=== PATIENT | female | born 1980 | race Hispanic/Latino ===

== ENCOUNTER 2018-09-06 08:06 | Inpatient (IN) | payer OTHER ==
[2018-09-06] MEDS ORDERED: BRETHINE SUB-Q PRN (13:22)
[2018-09-06] MEDS ORDERED: MINERAL OIL PO PRN (13:22)
[2018-09-06] MEDS ORDERED: SUBLIMAZE IV PRN (13:22)
[2018-09-06] MEDS ORDERED: ZOFRAN IV PRN (13:22)
[2018-09-06] MEDS ORDERED: XYLOCAINE 2% INFILTRATI ONE (13:22)
--- NOTE | 2018-09-06 13:36 | History and Physical Report ---
History of Present Illness Date of examination: 09/06/18 Chief complaint: Labor contractions started @ 0445 this morning History of present illness: EDC Confirmation: 09/04/2018 Past History : 3 Term Births: 2 Premature Births: 0 Living Children: 2 Para: 2 Mult. Births: 0 Prev : 0 Aborta: 0 Elect. Ab: 0 Spont. Ab: 0 Ectopics: 0 # 1 Delivery date: 2013 Weeks Gestation: 40 labor: no Delivery type: Sex: Female weight: 8#6 Name: Nadia Comments: ? CF carrier? # 2 Delivery date: 08/2017 Weeks Gestation: 40 labor: no Delivery type: Infant Sex: Male weight: 9#12 Comments: no shoulder dystocia Past Medical History: Negative Past Medical History Past Surgical History: negative Past Medical History Anesthesia Complications: negative Anemia: negative Autoimmune Disorder: negative Bleeding Disorder: negative Blood Transfusions: negative Breast Disease: negative Diabetes: negative Heart Disease: negative Hypertension: negative Hepatitis/Liver Disease: negative Kidney Disease/UTI: negative Neurologic/Epilepsy/Migraines: negative Phlebitis/Varicosities: negative Psychiatric: negative Pulmonary Disease/Asthma: negative Thyroid Disease: negative Hospitalizations: negative Surgery (Non-case manager specialist): negative Abnormal PAP: negative 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 of genital herpes: no Partner hx. of genital herpes: no Rash, Viral, or Febrile illness since last LMP? no Varicella/Chicken Pox Status: Previous Disease TB Risk: no Genetic History ADVANCED MATERNAL AGE Congenital Heart Defect: Mom: no Dad: no Germain Disease: Mom: no Dad: no Thalassemia Mom: no Dad: no Neural Tube Defect Mom: no Dad: no Down's Syndrome Mom: no Dad: no Beka-Sachs Mom: no Dad: no Sickle Cell Disease/Trait Mom: no Dad: no Hemophilia Mom: no Dad: no Muscular Dystrophy Mom: no Dad: no Cystic Fibrosis Mom: no Dad: no [place] Chorea Mom: no Dad: no Mental Retardation Mom: no Dad: no Fragile X Mom: no Dad: no Other Genetic/Chromosomal Disorder Mom: no Dad: no Child w/other defect Mom: no Dad: no Other: Daughter's screening + CF - no disease, mother not sure if she has been testing Enviromental Exposures Xray Exposure: no Medication, drug, or alcohol use since LMP: no Chemical/Other Exposure: no Exposure to Cat Liter: no Hx of Parvovirus (Fifth Disease): no Occupational Exposure to Children: none Past History Past Medical History: other (see HPI) Past Surgical History: other (see HPI) 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 (HPI) Family/Genetic History: other (see HPI) - Obstetrical History Expected Date of Delivery: 09/04/18 Actual Gestation: 40 Week(s) 2 Day(s) : 3 Para: 2 Hx # Term Pregnancies: 2 Number of Pregnancies: 0 Spontaneous Abortions: 0 Induced : 0 Number of Living Children: 2 Medications and Allergies Allergies Allergy/AdvReac Type Severity Reaction Status Date / Time Penicillins Allergy Anaphylaxis Verified 09/06/18 08:15 Active Meds: Active Medications Ephedrine Sulfate (Ephedrine Sulfate) 10 mg IV Q2M PRN PRN Reason: Hypotension Fentanyl (Sublimaze) 100 mcg IV Q2H PRN PRN Reason: Labor Pain Lactated Ringer's (Lactated Ringers) 1,000 mls @ 125 mls/hr IV DIRECT USHA Review of Systems All systems: negative - Vital Signs Vital signs: Vital Signs Pulse BP 73 125/70 09/06/18 08:16 09/06/18 08:16 Temp Pulse Resp BP Pulse Ox 73 125/70 09/06/18 08:16 09/06/18 08:16 - Physical Exam Breasts: Positive: normal Cardiovascular: Regular rate Lungs: Positive: Clear to auscultation, Normal air movement Abdomen: Positive: normal appearance, soft Genitourinary (Female): Positive: normal external genitalia, normal perenium Vulva: both: normal Vagina: Positive: normal moisture Uterus: Positive: normal size, normal contour Anus/Rectum: Positive: normal perianal skin Extremities: Positive: normal Deep Tendon Reflex Grade: Normal +2 - Obstetrical FHR: category 1 Uterine Contraction Monitor Mode: External Cervical Dilatation: 7 (IBOW) Cervical Effacement Percentage: 90 station: -1 Uterine Contraction Frequency (min): 3-5 Uterine Contraction Duration: 60 Uterine Contraction Pattern: Regular Uterine Tone Measurement Phase: Contraction Uterine Contraction Intensity: Strong/Firm Results All other labs normal. Assessment and Plan 38y/o admitted for active labor @ 40+2 weeks. GBS NEG. efw by u/s 08/20 8#10oz. Pt's last baby 9#12 w/o shoulder dystocia or laceration. Dr. Carrillo aware. Admission orders in EMR. Anticipate . Pt plans on natural without intervention if possible. - Patient Problems (1) 40 weeks gestation of Current Visit: Yes Status: Acute (2) Active labor at term Current Visit: Yes Status: Acute (3) BMI 40.0-44.9, adult Current Visit: Yes Status: Acute (4) Hx of macrosomia in infant in prior , currently Current Visit: Yes Status: Acute
[2018-09-06] MEDS ORDERED: LACTATED RINGERS 1,000 ML IV SCH (14:00)
[2018-09-06] MEDS ORDERED: PITOCin/NS 20 UNIT/1000ML DRIP 20 UNITS/1,000 ML BAG IV SCH ×2 (14:00→18:14)
[2018-09-06 14:21] LABS: Mean Corpuscular HGB Conc 36 % (30-34); Mean Corpuscular Volume 80 fl (79-97); Platelet Count 303 K/mm3 (140-440); Red Blood Count 4.53 M/mm3 (3.65-5.03); Red Cell Distribution Width 16.4 % (13.2-15.2)
[2018-09-06 14:27] LABS: Hematocrit 36.3 % (30.3-42.9); Hemoglobin 13.1 gm/dl (10.1-14.3)
--- NOTE | 2018-09-06 16:39 | Procedure Note ---
OB Delivery Note - Delivery Date of Delivery: 09/06/18 ( female) Rn Document Improvement Specialist: REJI DUDLEY Estimated blood loss: 200cc - Vaginal Delivery presentation: vertex Delivery position: OA (NONI) Intrapartum events: none Delivery induction: none Delivery augmentation: rupture of membranes Delivery monitor: external uterine, internal FHT Route of delivery: Delivery placenta: spontaneous Delivery cord: 3 umbilical vessels Episiotomy: none Delivery laceration: none Anesthesia: none Delivery comments: Female del over intact perineum, NONI. + terminal mec, fluid clear prior to delivery. no shoulder dystocia. Infant placed skin to skin on mother's abdomen. 3 vessel cord clamped and cut. Cord blood collected. Placenta del intact and complete. no laceration to repair. Pit to IVF. EBL 200. Apgars 8/9, wt 9#13oz. Mother and remain LDR stable. - Infant A at 1 minute: 8 at 5 minutes: 9 Infant Gender: Female (9#13)
[2018-09-06] MEDS ORDERED: TYLENOL PO PRN (18:14)
[2018-09-06] MEDS ORDERED: BENADRYL PO PRN (18:14)
[2018-09-06] MEDS ORDERED: DERMOPLAST TP PRN (18:14)
[2018-09-06] MEDS ORDERED: TUCKS PAD TP PRN (18:14)
[2018-09-06] MEDS ORDERED: SODIUM CHLORIDE FLUSH SYRINGE 10 ML IV NR (18:14)
[2018-09-06] MEDS ORDERED: LANSINOH TP PRN (18:14)
[2018-09-06] MEDS ORDERED: MILK OF MAGNESIA PO PRN (18:14)
[2018-09-06] MEDS ORDERED: PHENERGAN PO PRN (18:14)
[2018-09-06] MEDS ORDERED: DULCOLAX PR PRN (18:14)
[2018-09-06] MEDS: IBUPROFEN PO SCH ×2 (18:29→23:50)
[2018-09-07] MEDS: IBUPROFEN PO SCH ×3 (05:47→20:17)
[2018-09-07 06:23] LABS: Hemoglobin 11.4 gm/dl (10.1-14.3)
--- NOTE | 2018-09-07 08:09 | Discharge Summary ---
Providers - Providers Date of Admission: 09/06/18 13:58 Date of discharge: 09/07/18 (pt desires discharge today) Attending physician: DALY PEDRAZA Primary care physician: DALY PEDRAZA Hospitalization Reason for admission: labor Condition: Good Pertinent studies: post delivery H&H Procedures: Hospital course: uncomplicated and course Disposition: -01 TO HOME OR SELFCARE Core Measure Documentation - Palliative Care Palliative Care/ Comfort Measures: Not Applicable - Core Measures Any of the following diagnoses?: none Exam - Constitutional Vitals: Temp Pulse Resp BP Pulse Ox 98.1 F 76 18 121/65 97 09/07/18 05:02 09/07/18 05:02 09/07/18 05:02 09/07/18 05:02 09/07/18 05:02 General appearance: Present: no acute distress, well-nourished - EENT Eyes: Present: PERRL ENT: hearing intact, clear oral mucosa - Neck Neck: Present: supple, normal ROM - Respiratory Respiratory effort: normal Respiratory: bilateral: CTA - Cardiovascular Rhythm: regular Heart Sounds: Present: S1 & S2. Absent: rub, click - Extremities Extremities: pulses symmetrical, No edema Peripheral Pulses: within normal limits - Abdominal General gastrointestinal: Present: soft, non-tender, non-distended, normal bowel sounds Female genitourinary: Present: normal - Integumentary Integumentary: Present: clear, warm, dry - Musculoskeletal Musculoskeletal: gait normal, strength equal bilaterally - Psychiatric Psychiatric: appropriate mood/affect, intact judgment & insight - Neurologic Neurologic: CNII-XII intact, moves all extremities - Additional findings Additional findings: Fundus firm, ML, U/1. Vaginal bleeding is small. Patient reports pain is well controlled with ibuprofen. VSSAF. Breast feeding is going well, no complaints, she reports infant is doing well. Patient desires discharge today. May d/c home after 24 hrs post delivery, assuming she remains stable condition. D/c may be rolled over to tomorrow if is required to stay d/t bilirubin levels. Pt will f/u in office in 4 weeks. Plan Activity: no restrictions Diet: regular Follow up with: DALY PEDRAZA MD [Primary Care Provider] - 10/05/18 (Congratulations! Please call [phone] to schedule your appointment in 4 weeks. Call with any questions or concerns prior to appointment time. )
[2018-09-07] MEDS: PRENATAL VITAMIN PO SCH (10:18)
[2018-09-07] MEDS: PEPCID PO SCH ×3 (14:03→22:00)
[2018-09-07] MEDS ORDERED: M-M-R II VACCINE SUB-Q ONE (16:34)
[2018-09-08] MEDS: IBUPROFEN PO SCH ×2 (01:24→13:26)
[2018-09-08 08:33] VITALS: BP 137/77
[2018-09-08] MEDS ORDERED: PITOCin/NS 20 UNIT/1000ML DRIP IV ONE ×2 (12:00→22:14)
[2018-09-08] MEDS ORDERED: BOOSTRIX IM ONE (12:15)
[2018-09-08] MEDS ORDERED: M-M-R II VACCINE SUB-Q ONE (12:15)
[2018-09-08] MEDS ORDERED: AFLURIA QUAD 2018-2019 SYRINGE IM ONE (12:15)
[2018-09-08] MEDS: PRENATAL VITAMIN PO SCH (13:25)
== END 2018-09-08 13:52 | disposition home or self-care (01) | DRG 807 ==
LOC: TRG 08:06 → LD 13:58 → OB 18:12
PROVIDERS: ADMIT Obstetrics & Gynecology; ATTEND Obstetrics & Gynecology
PROC: 10E0XZZ Delivery of Products of Conception, External Approach (ICD-10-PCS; principal; 2018-09-06)
PROC: 3E0234Z Introduction of Serum, Toxoid and Vaccine into Muscle, Percutaneous Approach (ICD-10-PCS; 2018-09-08)
DX: O80 Encounter for full-term uncomplicated delivery (principal); Z37.0 Single live birth; Z3A.40 40 weeks gestation of pregnancy; Z88.0 Allergy status to penicillin; Z23 Encounter for immunization
CPT/HCPCS: 36415; 85014; 85018; 85027; 86592; 86850; 86900; 86901; 90686; 90707; 90715; G0378; A6250; J2590; J7120